=== PATIENT | female | born 1960 | race Caucasian/White ===

== ENCOUNTER → 2019-11-19 08:49 | Outpatient (BNVA) | payer BC, SELFPAY | PROVIDERS: PCP Nurse Practitioner; Visit Provider Nurse Practitioner | DX: E78.2 Mixed hyperlipidemia (principal); R53.83 Other fatigue; I10 Essential (primary) hypertension; Z13.1 Encounter for screening for diabetes mellitus | CPT/HCPCS: 80053; 80061; 83036; 84443; 85025 ==

== ENCOUNTER → 2020-10-27 10:52 | Outpatient (BNVA) | payer BC, SELFPAY | PROVIDERS: PCP Nurse Practitioner; Visit Provider Emergency Medicine | DX: R53.83 Other fatigue (principal); E78.2 Mixed hyperlipidemia; I10 Essential (primary) hypertension; R60.9 Edema, unspecified; Z86.73 Personal history of transient ischemic attack (TIA), and cerebral infarction without residual deficits | CPT/HCPCS: 80053; 80061; 83880; 84443; 85025 ==

== ENCOUNTER 2023-12-09 10:04 | Emergency (ER) | payer SELFPAY ==
[2023-12-09 10:59] VITALS: BP 169/104; PULSE 74; RESP 18; TEMP 36.6; O2SAT 96; BMI 36.6
[2023-12-09 11:17] VITALS: BP 185/108; PULSE 71; RESP 18; O2SAT 99
--- NOTE | 2023-12-09 11:17 | CT_ITS ---
WS: [id number] CT HEAD TECHNIQUE: Noncontrast CT of the head obtained from the skullbase to the vertex. CLINICAL INFORMATION: vertigo, gait abnormality COMPARISON: MRI 2014 and CTA 2014 DLP: 996.[address] scans at [facility] use at least one of these dose optimization techniques: automated e xposure control; mA and/or kV adjustment per patient size (includes targeted exams where dose is matc hed to clinical indication); or iterative reconstruction. FINDINGS: No evidence of intracranial hemorrhage or mass effect. Ventricular system and basal cisterns are lobo nt. Mild small vessel changes with mild parenchymal volume loss. No extra-axial fluid collections. No evidence of mass or mass effect. Intracranial vascular calcification. Small chronic appearing lacuna r infarct RIGHT cerebellum. Paranasal sinuses and mastoid air cells are well aerated. .Normal visualized soft tissues. IMPRESSION: 1. No evidence of intracranial hemorrhage or mass effect. 2. Mild small vessel changes. Mild parenchymal volume loss. Parenchymal volume loss and small vessel changes progressed compared to 2015 3. Intracranial vascular calcification. 4. Small chronic appearing lacunar infarct RIGHT cerebellum. 5. No acute intracranial findings.
--- NOTE | 2023-12-09 11:18 | W.ED.DIZZY ---
HPI - Dizziness General: Chief Complaint: Dizziness Stated Complaint: dizziness, vomitting Time Seen by Provider: 12/09/23 11:15 History of Present Illness: HPI Narrative: 63-year-old female with a history of hypertension who presents to the emergency room with vertigo. She says she has been feeling very dizzy for approximately 2 days now. She says she had not thrown up until she took some Dramamine and then she did vomit at that time and this prompted her come to the emergency room. No focal motor deficits. No altered mental status. No vision changes. No facial droop. No trouble swallowing. No fevers. She says she has had vertigo before but nothing this bad. She says that she is having some trouble walking. While sitting in the bed she is rocking back and forth with her eyes closed. Review of Systems Narrative: Constitutional symptoms: Negative except as documented in HPI. Skin symptoms: Negative except as documented in HPI. Eye symptoms: Negative except as documented in HPI. ENMT symptoms: Negative except as documented in HPI. Respiratory symptoms: Negative except as documented in HPI. Cardiovascular symptoms: Negative except as documented in HPI. Gastrointestinal symptoms: Negative except as documented in HPI. Genitourinary symptoms: Negative except as documented in HPI. Musculoskeletal symptoms: Negative except as documented in HPI. Neurologic symptoms: Negative except as documented in HPI. Psychiatric symptoms: Negative except as documented in HPI. Endocrine symptoms: Negative except as documented in HPI. [facility] ED PFSH: Medical History Frequent headaches History of TIA (transient ischemic attack) 2013 Hypertension Memory loss Mixed dyslipidemia Surgical History Hx of hysterectomy S/P tonsillectomy Family History Other CAD (coronary artery disease) Cancer Diabetes Hypertension Lung disease Psychiatric illness Stroke Social History Smoking and tobacco/nicotine status: former use of tobacco/nicotine Alcohol intake: never Substance/Drug Use: never Physical Exam Narrative: EXAM NARRATIVE: General: Alert, no acute distress. Skin: Warm, dry. Head: Normocephalic, atraumatic. Neck: Supple, trachea midline. Eye: Extraocular movements are intact. Ears, nose, mouth and throat: mucosa moist. Cardiovascular: Regular, Normal peripheral perfusion. Respiratory: Lungs are clear to auscultation, respirations are non-labored, breath sounds are equal, Symmetrical chest wall expansion. Gastrointestinal: Soft, Nontender, Non distended, Normal bowel sounds. Musculoskeletal: Normal ROM, no deformity. Neurological: Alert and oriented, No focal neurological deficit observed. Patient is rocking back and forth in the bed. Psychiatric: Cooperative, appropriate mood & affect. Course Vital Signs: Vital signs: Vital Signs Temperature 97.9 F 12/09/23 10:59 Pulse Rate 71 12/09/23 12:06 Respiratory Rate 18 12/09/23 12:06 Blood Pressure 195/114 12/09/23 12:06 Pulse Oximetry 98 12/09/23 12:06 Oxygen Delivery Me thod Room Air 12/09/23 12:06 MDM - Dizziness Medical Decision Making Medical decision making: Differential diagnosis including but not limited to and based on the above HPI, review of systems and physical exam: Concern for peripheral versus central vertigo. CT of the head ordered to rule out stroke. Given this has been over 2 days of symptoms likely a noncontrast head CT should be sufficient. Orders placed to evaluate differential diagnosis based on the above differential, HPI and physical exam Lab Review: Laboratory results were reviewed and interpreted by myself the emergency room physician. Lab work is unremarkable. Hemoglobin is 17. White count is 5. BUN and creatinine are 9 and 0.6. Urinalysis is negative for infection. CT of the head without contrast: 1. No evidence of intracranial hemorrhage or mass effect. 2. Mild small vessel changes. Mild parenchymal volume loss. Parenchymal volume loss and small vessel changes progressed compared to 2015 3. Intracranial vascular calcification. 4. Small chronic appearing lacunar infarct RIGHT cerebellum. 5. No acute intracranial findings. Reexamination: Patient's says she feels much better. Medications have helped with her vertigo symptoms. No increased work of breathing. No altered mental status. No focal motor deficits. She has no nystagmus. We discussed that she shows evidence of previous stroke in her cerebellum which could be causing dizziness. She does not have any currently. She says she has not been taking her blood pressure medicine as she should. She also says she only occasionally takes an aspirin. I discussed the importance of taking a full-strength aspirin every day. And following with her primary doctor. Lab Data 12/09/23 11:35 12/09/23 11:35 Laboratory Results WBC 5.04 10^3/uL (3.29-11.43) 12/09/23 11:35 RBC 5.97 10^6/uL (3.85-5.65) H 12/09/23 11:35 Hgb 17.10 g/dL (11.27-16.99) H 12/09/23 11:35 Hct 52.3 % (36-47) H 12/09/23 11:35 MCV 87.6 fl (85-98) 12/09/23 11:35 MCH 28.6 pg (27-33) 12/09/23 11:35 MCHC 32.7 g/dL (30-55) 12/09/23 11:35 RDW 13.2 % (12.1-15.1) 12/09/23 11:35 Plt Count 333 10^3/cmm (157-399) 12/09/23 11:35 MPV 9.9 fL (7.4-10.4) 12/09/23 11:35 Neut % (Auto) 66.8 % 12/09/23 11:35 Lymph % (Auto) 25.4 % 12/09/23 11:35 Harmon % (Auto) 3.6 % 12/09/23 11:35 Eos % (Auto) 3.0 % 12/09/23 11:35 Baso % (Auto) 1.0 % 12/09/23 11:35 Neut # (Auto) 3.37 10^3/uL (1.8-7.7) 12/09/23 11:35 Lymph # (Auto) 1.3 10^3/uL (0.8-4.8) 12/09/23 11:35 Harmon # (Auto) 0.2 10^3/uL (0.2-0.9) 12/09/23 11:35 Eos # (Auto) 0.2 10^3/uL (0.0-0.8) 12/09/23 11:35 Baso # (Auto) 0.1 10^3/uL (0.0-0.1) 12/09/23 11:35 Nucleated RBC % (auto) 0 % 12/09/23 11:35 Nucleated RBCs # 0.0 /100WBC 12/09/23 11:35 Sodium 141 mmol/L (136-145) 12/09/23 11:35 Potassium 4.5 mmol/L (3.5-5.1) 12/09/23 11:35 Chloride 103 mmol/L (98-107) 12/09/23 11:35 Carbon Dioxide 27 mmol/L (22-29) 12/09/23 11:35 Anion Gap 15.5 (5-19) 12/09/23 11:35 BUN 9 mg/dL (8-23) 12/09/23 11:35 Creatinine 0.6 mg/dL (0.5-0.9) 12/09/23 11:35 GFR Calculation 101.3 mL/min (90-130) 12/09/23 11:35 Glucose 117 mg/dL (65-115) H 12/09/23 11:35 Calculated Osmolality 292 mOsm/kg (285-295) 12/09/23 11:35 Calcium 10.2 mg/dL (8.5-10.5) 12/09/23 11:35 Total Bilirubin 0.4 mg/dL (0.15-1.2) 12/09/23 11:35 AST 18 U/L (0-32) 12/09/23 11:35 ALT 21 U/L (0-33) 12/09/23 11:35 Alkaline Phosphatase 126 U/L (35-105) H 12/09/23 11:35 Total Protein 8.4 g/dL (6.6-8.7) 12/09/23 11:35 Albumin 5.0 g/dL (3.5-5.2) 12/09/23 11:35 Globulin 3.4 g/dL (1.3-4.6) 12/09/23 11:35 Lipase 26 U/L (13-60) 12/09/23 11:35 Urine Color Light yellow (Yellow) 12/09/23 12:24 Urine Appearance Clear (CLEAR) 12/09/23 12:24 Urine pH 6.5 (5-7) 12/09/23 12:24 Ur Specific [place] 1.005 (1.005-1.030) 04/05/24 12:24 Urine Protein Neg (Negative) 12/09/23 12:24 Urine Glucose (UA) Norm (Normal) 12/09/23 12:24 Urine Ketones Negative (Negative) 12/09/23 12:24 Urine Blood Neg (Negative) 12/09/23 12:24 Urine Nitrate Negative (Negative) 12/09/23 12:24 Urine Bilirubin Neg (Negative) 12/09/23 12:24 Urine Urobilinogen Neg mg/dL (Negative) 12/09/23 12:24 Ur Leukocyte Esterase Negative (Negative) 12/09/23 12:24 Urine RBC Rare /hpf (0-2) 12/09/23 12:24 Urine WBC Rare /hpf (0-5) 12/09/23 12:24 Ur Squamous Epith Cells Rare /hpf (0-5) 12/09/23 12:24 Amorphous Sediment Not Reportable 12/09/23 12:24 Urine Bacteria Trace /hpf (NONE) 12/09/23 12:24 Influenza Type A Ag negative (Negative) 12/09/23 12:21 Influenza Type B Ag negative (Negative) 12/09/23 12:21 All radiology interpretation(s) finalized by discharge Discharge Plan Discharge Patient Disposition: Home Clinical Impression: Vertigo, History of cerebellar stroke, Accelerated hypertension Condition: Stable Prescriptions: New meclizine 25 mg tablet 25 mg PO QID PRN (Reason: dizziness) Qty: 20 0RF Ativan 1 mg tablet 1 mg PO BID PRN (Reason: dizziness or vertigo) Qty: 20 0RF No Action lisinopril 20 mg tablet 20 mg PO DAILY Discharge Orders: Discharge ED (Routine); Ordered 12/09/23 Ordered By: Maribell Ramirez Discharge Diet: Usual diet Discharge Activity: Increase activity as tolerated Patient Instructions: Vertigo (ED) Activity Restrictions/Additional Instructions: Please take a full-strength aspirin every day. Follow with your primary care about the old stroke seen on your CT scan. Take your blood pressure medications as instructed. You have been screened and evaluated and felt safe for discharge. Health conditions do change or evolve sometimes and as such it is important that you follow up with your Primary Doctor to be re checked, 3-5 days is a general good time frame for follow up. You are always welcome to return to the ED for re assessment if your symptoms are worsening or you have new concerns Coding Level of Care Code ED Inside Meter Tester for Chg Fwd
[2023-12-09 11:21] VITALS: BP 173/120; BP 181/102; BP 185/108; PULSE 65; PULSE 73
[2023-12-09] MEDS: meclizine 25 mg tablet 50 MG PO (12:02)
[2023-12-09] MEDS: LORazepam 2 mg/mL INJ 10 mL MDV 1 MG IV (12:02)
[2023-12-09 12:06] VITALS: BP 195/114; PULSE 71; RESP 18; O2SAT 98
[2023-12-09 12:17] LABS: Basophils # 0.1 10^3/uL (0.0-0.1); Eosinophils # 0.2 10^3/uL (0.0-0.8); Hematocrit 52.3 % (36-47); Lymphocytes # 1.3 10^3/uL (0.8-4.8); Lymphocytes % 25.4 %; Mean Corpuscular HGB Conc 32.7 g/dL (30-55); Mean Corpuscular Hemoglobin 28.6 pg (27-33); Mean Corpuscular Volume 87.6 fl (85-98); Mean Platelet Volume 9.9 fL (7.4-10.4); Monocytes # 0.2 10^3/uL (0.2-0.9); Monocytes % 3.6 %; Neutrophils # 3.37 10^3/uL (1.8-7.7); Neutrophils % 66.8 %; Nucleated Red Blood Cells % 0 %; Platelet Count 333 10^3/cmm (157-399); Red Blood Count 5.97 10^6/uL (3.85-5.65); Red Cell Distribution Width 13.2 % (12.1-15.1); White Blood Count 5.04 10^3/uL (3.29-11.43)
[2023-12-09 12:37] LABS: Alanine Aminotransferase 21 U/L (0-33); Alkaline Phosphatase 126 U/L (35-105); Anion Gap 15.5 (5-19); Aspartate Amino Transferase 18 U/L (0-32); Blood Urea Nitrogen 9 mg/dL (8-23); Calcium 10.2 mg/dL (8.5-10.5); Carbon Dioxide 27 mmol/L (22-29); Chloride 103 mmol/L (98-107); Creatinine Clr Calc Pharmacy 101.8245; Globulin 3.4 g/dL (1.3-4.6); Glomerular Filtration Rate 101.3 mL/min (90-130); Glucose 117 mg/dL (65-115); Lipase 26 U/L (13-60); Osmolality Calculated 292 mOsm/kg (285-295); Potassium 4.5 mmol/L (3.5-5.1); Sodium 141 mmol/L (136-145); Total Bilirubin 0.4 mg/dL (0.15-1.2); Total Protein 8.4 g/dL (6.6-8.7)
[2023-12-09 13:26] LABS: Influenza A by IFA negative (Negative); Influenza B by IFA negative (Negative)
[2023-12-09 13:32] LABS: Bilirubin Urine Neg (Negative); Blood Urine Neg (Negative); Glucose Urine UA Norm (Normal); Ketones Urine Negative (Negative); Leukocyte Esterase Urine Negative (Negative); Nitrate Urine Negative (Negative); Protein Urine Neg (Negative); Specific Gravity, Urine 1.005 (1.005-1.030); Urine Appearance Clear (CLEAR); Urine Color Light yellow (Yellow); Urobilinogen Urine Neg (Negative); pH Urine 6.5 (5-7)
[2023-12-09 13:33] LABS: RBC Urine RARE /hpf (0-2); WBC Urine RARE /hpf (0-5)
[2023-12-09 13:34] LABS: Add Urine Culture? No; Bacteria Urine TRACE /hpf; Squamous Epithelial Cell Urine RARE /hpf (0-5)
[2023-12-09 14:06] VITALS: BP 172/112; PULSE 76; RESP 16; O2SAT 100
== END 2023-12-09 14:07 | disposition home or self-care (01) ==
PROVIDERS: Emergency Provider Emergency Medicine
DX: R42 Dizziness and giddiness (principal); I10 Essential (primary) hypertension; Z86.73 Personal history of transient ischemic attack (TIA), and cerebral infarction without residual deficits; Z87.891 Personal history of nicotine dependence; E78.2 Mixed hyperlipidemia
CPT/HCPCS: 70450; 80053; 81001; 83690; 85025; 87804; 96374; 99285; J2060; J8597